=== PATIENT | female | born 1950 | race African-American/Black ===

== ENCOUNTER 2017-08-13 07:41 | Day surgery (SDC) | payer OTHER, SELFPAY ==
[2017-08-12 13:27] LABS: APPEARANCE,URINE CLEAR (CLEAR); BILIRUBIN,URINE NEGATIVE (NEGATIVE); COLOR,URINE YELLOW (YELLOW); GLUCOSE, URINE (UA) NEGATIVE (NEGATIVE); KETONES,URINE NEGATIVE (NEGATIVE); LEUKOCYTE ESTERASE ,URINE NEGATIVE (NEGATIVE); NITRATE,URINE NEGATIVE (NEGATIVE); OCCULT BLOOD,URINE NEGATIVE (NEGATIVE); PROTEIN,URINE NEGATIVE (NEGATIVE); UROBILINOGEN,URINE 0.2 mg/dL (0.2-1.0)
[2017-08-12 13:40] LABS: CREATININE 0.8 mg/dL (0.5-1.5); POTASSIUM 4.4 mmol/L (3.5-5.1)
[2017-08-12 13:44] LABS: BASOPHILS % (AUTO) 0.7 % (0.0-5.0); EOSINOPHILS % (AUTO) 2.3 % (0.0-8.0); HEMATOCRIT 38.6 % (36-48); LYMPHOCYTES % (AUTO) 44.8 % (21.0-51.0); MEAN CORPUSCULAR HEMOGLOBIN 28.9 pg (27.0-33.0); MEAN CORPUSCULAR HGB CONC 32.9 g/dL (32.0-36.0); MEAN CORPUSCULAR VOLUME 87.7 fL (79-99); MONOCYTES % (AUTO) 6.3 % (3.0-13.0); NEUTROPHILS % (AUTO) 45.9 % (40.0-77.0); PLATELET COUNT (AUTO) 177 K/uL (130-400); RED CELL DISTRIBUTION WIDTH 13.9 % (11.0-15.5); WHITE BLOOD COUNT (AUTO) 6.5 K/uL (4.8-10.8)
[2017-08-12 13:54] LABS: INR 0.98 (0.85-1.15); PARTIAL THROMBOPLASTIN TIME 24.7 SEC (26.3-35.5); PROTHROMBIN TIME 10.3 SEC (9.6-11.6)
[2017-08-12 13:55] VITALS: BP 142/76
[~2017-08-13] VITALS: Ht 166.4 cm; Wt 83.9 kg
[2017-08-13] VITALS (16 sets, daily range): BP systolic 122–185; BP diastolic 72–102
[2017-08-13] MEDS: CEFAZOLIN SODIUM 1 GM VIAL IVP SCH ×2 (06:00→08:35)
[~2017-08-13 07:41] MED LIST: AEC81 PO; AMLO10TA2 PO; BRIM5DRO OP; CALDOLOR 800MG+NS 250ML 250 ML IV ONE; DEXAMETHASONE SOD PHOSPHATE 10MG/ML 1ML VIAL ONE; DORZ10DR9 OD; FENTANYL CITRATE PF 50 MCG/1 ML 2ML VIAL ONE; LACTATED RINGERS 1000ML 1,000 ML IV ONE; LIDOCAINE PF 2% 5ML ABBOJECT ONE; LOSA25TA21 PO; MIDAZOLAM HCL 1 MG/ML 2ML VIAL ONE; PROPOFOL 10 MG/ML 20ML VIAL IV ONE; ROCURONIUM BROMIDE 10MG/1ML 5ML VL ONE; ROPIVACAINE 0.5% 5MG/ML 30ML IJ ONE; SIMV20TA6 PO; XALA2.5OS OD
[2017-08-13] MEDS ORDERED: FENTANYL CITRATE PF 50 MCG/1 ML 2ML VIAL ONE (08:56)
[2017-08-13] MEDS ORDERED: LIDOCAINE HCL 4% LTA SOL 4 ML VIAL ONE ×2 (09:28→10:35)
[2017-08-13] MEDS ORDERED: ROCURONIUM BROMIDE 10MG/1ML 5ML VL ONE ×2 (10:33)
[2017-08-13] MEDS ORDERED: NEOSTIGMINE METHYLSULFATE 1MG/ML IV ONE (10:34)
[2017-08-13] MEDS ORDERED: PHENYLEPHRINE HCL 10 MG/ML 1ML VIAL IV ONE (10:34)
[2017-08-13] MEDS ORDERED: ROPIVACAINE 0.5% 5MG/ML 30ML IJ ONE (10:35)
[2017-08-13] MEDS ORDERED: ONDANSETRON HCL 4 MG/2 ML VIAL ONE (10:44)
[2017-08-13] MEDS ORDERED: HYDRALAZINE HCL 20 MG/ML VIAL ONE (11:21)
[2017-08-13] MEDS ORDERED: TRAMADOL HCL 50 MG TABLET ONE (12:46)
== END 2017-08-13 14:20 | disposition home or self-care (01) ==
LOC: DAH 07:41
PROVIDERS: ATTEND Orthopaedic Surgery
DX: S82.841A Displaced bimalleolar fracture of right lower leg, initial encounter for closed fracture (principal); X58.XXXA Exposure to other specified factors, initial encounter; Y93.9 Activity, unspecified; Y92.89 Other specified places as the place of occurrence of the external cause; Y99.9 Unspecified external cause status; I10 Essential (primary) hypertension; E66.9 Obesity, unspecified; Z79.01 Long term (current) use of anticoagulants; Z79.82 Long term (current) use of aspirin; E78.4 Other hyperlipidemia
CPT/HCPCS: 27814; 36415; 71046; 76000; 80048; 81003; 85025; 85610; 85730; 93005; 97161; A4218; A4649 ×5; A4930 ×2; A6223; C1713 ×4; C1776; G8978; G8979; G8980; G8981; G8982; G8983; J0360; J0690; J1100; J1741; J2001; J2250; J2370; J2405; J2704; J2710; J2795 ×2; J3010 ×2; J3490 ×3; J7120; Q4050